=== PATIENT | female | born 1990 | race Caucasian/White ===

== ENCOUNTER → 2017-11-08 | Outpatient (CLI) | payer OTHER ==
[2017-11-08 13:34] LABS: BARBITURATES NEG (NEG); BENZODIAZEPINES NEG (NEG); CANNABINOIDS NEG (NEG); COCAINE NEG (NEG); METHADONE NEG (NEG); OPIATES NEG (NEG); PHENCYCLIDINE NEG (NEG)
[2017-11-08 13:43] LABS: AMPHETAMINE/METHAMPHETAMINE NEG (NEG)
[2017-11-09 16:28] LABS: HCV ANTIBODY >11.0 s/co ratio (0.0-0.9); HEP B SURFACE ABDY Non Reactive (.)
[2017-11-10 13:38] LABS: HCV ULTRA QUANT PCR 50800 IU/mL (.)
== END | disposition home or self-care (01) ==
LOC: LAB 11:07
PROVIDERS: ATTEND Internal Medicine Gastroenterology
DX: R82.5 Elevated urine levels of drugs, medicaments and biological substances (principal); Z02.89 Encounter for other administrative examinations
CPT/HCPCS: 36415; 80307; 86706; 86803; 87340; 87521; 87902; G0479